=== PATIENT | male | born 1955 | race Hispanic/Latino ===

== ENCOUNTER → 2024-06-03 | Outpatient (CLI) | payer OTHER ==
[2024-06-03 10:07] LABS: T4 (THYROXINE) 6.5 ug/dL (4.7-13.3); THYROID STIMULATING HORMONE 2.01 uIU/mL (0.36-3.74)
== END | disposition home or self-care (01) ==
LOC: LAB 08:58
PROVIDERS: ATTEND Chiropractor
DX: E07.9 Disorder of thyroid, unspecified (principal)
CPT/HCPCS: 36415; 84436; 84443; 84481